=== PATIENT | female | born 1940 | race Caucasian/White ===

== ENCOUNTER 2018-06-30 14:20 | Outpatient (CLI) | payer OTHER | END 2018-06-30 14:27 | disposition home or self-care (01) | LOC: SONOGRAMA 14:20 | DX: M79.604 Pain in right leg (principal); M25.551 Pain in right hip ==

== ENCOUNTER → 2019-02-27 | Outpatient (CLI) | payer OTHER | END | disposition home or self-care (01) | LOC: SONOGRAMA 11:42 | DX: M79.642 Pain in left hand (principal); M79.641 Pain in right hand ==